=== PATIENT | female | born 1980 | race African-American/Black ===

== ENCOUNTER 2021-02-09 18:51 | Emergency (ER) | payer SELFPAY | END 2021-02-09 19:27 | disposition left against medical advice (07) | LOC: ER 18:56 | DX: Z53.21 Procedure and treatment not carried out due to patient leaving prior to being seen by health care provider (principal) ==

== ENCOUNTER 2022-11-03 10:40 | Emergency (ER) | payer MEDICAID, OTHER ==
[~2022-11-03] VITALS: Ht 147.3 cm; Wt 72.0 kg
[2022-11-03 11:06] LABS: HEMATOCRIT. 31.5 % (36.0-48.0); MEAN CORPUSCULAR HEMOGLOBIN 21.9 pg (28.0-32.0); MEAN CORPUSCULAR VOLUME 69.4 fL (81.0-99.0); MEAN PLATELET VOLUME 6.6 fl (7.4-10.4); PLATELET 352 x1000/uL (130-400); RED BLOOD CELL COUNT 4.54 mill/uL (4.2-5.4); RED CELL DISTRIBUTION WIDTH 19.6 % (11.6-14.6)
[2022-11-03 11:23] LABS: CHLORIDE 102 mEq/L (98-107)
[2022-11-03 11:24] LABS: HCG SCREEN NEGATIVE
[2022-11-03 11:32] LABS: PLATELET ESTIMATE NORMAL
[2022-11-03 12:45] VITALS: BP 154/87
[2022-11-03] MEDS ORDERED: LISI-648 MT (12:46)
== END 2022-11-03 13:05 | disposition home or self-care (01) ==
LOC: ER 10:40
DX: R42 Dizziness and giddiness (principal); R51.9 Headache, unspecified; I10 Essential (primary) hypertension
CPT/HCPCS: 36415; 71045; 80053; 84484; 84703; 85025; 93005; 99285

== ENCOUNTER 2025-03-28 08:29 | Emergency (ER) | payer OTHER ==
[~2025-03-28] VITALS: Ht 147.3 cm; Wt 71.0 kg
[~2025-03-28 08:29] MED LIST: LISI-648 MT
[2025-03-28 08:30] VITALS: BP 148/102; PULSE 80; RESP 15; TEMP 36.8; O2SAT 98
[2025-03-28 09:18] LABS: HEMATOCRIT. 27.6 % (36.0-48.0); HEMOGLOBIN. 8.1 g/dL (12.0-16.0); MEAN PLATELET VOLUME 6.8 fl (7.4-10.4); PLATELET 351 x1000/uL (130-400); RED BLOOD CELL COUNT 4.28 mill/uL (4.2-5.4); RED CELL DISTRIBUTION WIDTH 21.1 % (11.6-14.6)
[2025-03-28 10:10] LABS: CREATININE 0.9 mg/dL (0.6-1.0); UREA NITROGEN BLOOD 7 mg/dL (9-23)
[2025-03-28 10:14] LABS: EOSINOPHILS % MANUAL 1.0 % (0.0-5.0); LYMPHOCYTES % MANUAL 16.0 % (20.0-60.0); MONOCYTES % MANUAL 6.0 % (2.0-8.0); NEUTROPHILS % MANUAL 77.0 % (45.0-75.0); PLATELET ESTIMATE NORMAL
== END 2025-03-28 10:02 | disposition left against medical advice (07) ==
LOC: ER 08:29
DX: R42 Dizziness and giddiness (principal); D50.9 Iron deficiency anemia, unspecified; E03.9 Hypothyroidism, unspecified; N92.0 Excessive and frequent menstruation with regular cycle; I10 Essential (primary) hypertension; Z79.899 Other long term (current) drug therapy; Z88.5 Allergy status to narcotic agent
CPT/HCPCS: 36415; 80048; 85025; 93005; 99284